=== PATIENT | female | born 1955 | race Native Hawaiian/Other Pacific Islander ===

== ENCOUNTER 2019-02-05 10:58 | Emergency (ER) | payer OTHER ==
[~2019-02-05] VITALS: Ht 152.4 cm; Wt 105.7 kg
[~2019-02-05 10:58] MED LIST: BUSP5TAB2 PO; CLARITIN10 MG PO; DIVALPROEX500 MG PO; DOCU100C10 PO; GLIP10TA55 PO; GLUCAGON1 M1 IM; HALO5INJ3 IM; HUMULIN R1 ML SC; LEVO0.2T35 PO; LORA1TAB17 PO; LORA2INJ21 IM; METO50TA27 PO; ONDA4TAB3 PO; ROBAFEN100 MG/5 M PO; TRAZ100T PO; ZIPR20CA PO
[2019-02-05 11:52] LABS: PLATELET COUNT 236 K/uL (152-353)
[2019-02-05 11:58] LABS: POTASSIUM 3.4 mmol/L (3.6-5.2)
[2019-02-05 13:03] VITALS: BP 108/67; TEMP 97.5
[2019-02-05] MEDS ORDERED: TYLENOL325 MG PO (13:58)
[2019-02-05] MEDS ORDERED: CELEXA20 MG PO (14:00)
[2019-02-05] MEDS ORDERED: DOCU100C10 PO (14:00)
[2019-02-05] MEDS ORDERED: CRANBERRY450 MG PO (14:01)
[2019-02-05] MEDS ORDERED: DIVA250T2 PO (14:02)
[2019-02-05] MEDS ORDERED: CULTURELL3 PO (14:02)
[2019-02-05] MEDS ORDERED: FERROUS SULF325 M1 PO (14:03)
[2019-02-05] MEDS ORDERED: FURO40TA93 PO (14:04)
[2019-02-05] MEDS ORDERED: NEURONTIN 100M100 MG PO (14:05)
[2019-02-05] MEDS ORDERED: GLIP10TA55 PO (14:06)
[2019-02-05] MEDS ORDERED: [UNRECOGNIZED DRUG - OTHER] XX (14:08)
[2019-02-05] MEDS ORDERED: KETOCONAZOLE2 % EX (14:09)
[2019-02-05] MEDS ORDERED: LAMICTAL25 MG PO ×2 (14:10)
[2019-02-05] MEDS ORDERED: LANTUS SOL100 UNIT/M SC (14:11)
[2019-02-05] MEDS ORDERED: LIPITOR10 MG PO (14:12)
[2019-02-05] MEDS ORDERED: LEVO0.1T6 PO (14:12)
[2019-02-05] MEDS ORDERED: [UNRECOGNIZED DRUG - CODE] EX (14:15)
[2019-02-05] MEDS ORDERED: METO-837 PO (14:16)
[2019-02-05] MEDS ORDERED: METO5TAB38 PO (14:16)
[2019-02-05] MEDS ORDERED: OLAN2.5T2 PO (14:19)
[2019-02-05] MEDS ORDERED: PROCTOZONE-HC2.5 % EX (14:20)
[2019-02-05] MEDS ORDERED: RISPERDAL3 MG PO (14:21)
[2019-02-05] MEDS ORDERED: PANTOPRAZOLE 40MG TA PO (14:21)
[2019-02-05] MEDS ORDERED: VICTOZA18 MG/3 ML SC (14:23)
[2019-02-05] MEDS ORDERED: TRAZ50TA36 PO (14:23)
[2019-02-05] MEDS ORDERED: ASCO500T18 PO (14:24)
[2019-02-05] MEDS ORDERED: VITAMIN D34000 UNIT PO (14:25)
[2019-02-05] MEDS ORDERED: ZINC SULFATE220 M2 PO (14:26)
== END 2019-02-05 13:03 | disposition other institution (70) ==
LOC: ED 10:58
PROVIDERS: Family Medicine
DX: Z00.8 Encounter for other general examination (principal); R45.86 Emotional lability; F20.0 Paranoid schizophrenia
CPT/HCPCS: 36415; 80053; 81000; 85027; 93005; 99285

== ENCOUNTER 2019-09-05 18:16 | Emergency (ER) | payer OTHER ==
[~2019-09-05] VITALS: Ht 160 cm; Wt 105.2 kg
[~2019-09-05 18:16] MED LIST changes: +ASCO500T18 PO; +CELEXA20 MG PO; +CRANBERRY450 MG PO; +CULTURELL3 PO; +DIVA250T2 PO; +ESCI10TA PO; +FERROUS SULF325 M1 PO; +FURO40TA93 PO; +KETOCONAZOLE2 % EX; +LAMICTAL25 MG PO; +LANTUS SOL100 UNIT/M SC; +LEVO0.1T6 PO; +LIPITOR10 MG PO; +METO-837 PO; +METO5TAB38 PO; +MIRALAX 17GM PAK PO; +NEURONTIN 100M100 MG PO; +OLAN2.5T2 PO; +PANTOPRAZOLE 40MG TA PO; +POTA20TA4 PO; +PROCTOZONE-HC2.5 % EX; +RISPERDAL3 MG PO; +TRAZ50TA36 PO; +TYLENOL325 MG PO; +VICTOZA18 MG/3 ML SC; +VITAMIN D34000 UNIT PO; +ZINC SULFATE220 M2 PO; +[UNRECOGNIZED DRUG - CODE] EX; +[UNRECOGNIZED DRUG - OTHER] XX
[2019-09-05 19:20] LABS: PLATELET COUNT 270 K/uL (152-353)
[2019-09-05 19:35] LABS: POTASSIUM 5.4 mmol/L (3.6-5.2)
[2019-09-05 19:55] VITALS: BP 133/67; TEMP 98.6
[2019-09-05] MEDS ORDERED: BENZ1TAB43 PO (21:25)
[2019-09-05] MEDS ORDERED: B-121000 MC5 PO (21:27)
[2019-09-05] MEDS ORDERED: B-12500 MCG PO (21:31)
[2019-09-05] MEDS ORDERED: ZIPR20CA PO (21:33)
[2019-09-05] MEDS ORDERED: JANUVIA100 MG PO (21:34)
[2019-09-05] MEDS ORDERED: TIROSINT100 MCG PO (21:36)
[2019-09-05] MEDS ORDERED: SEROQUEL300 MG PO (21:38)
[2019-09-05] MEDS ORDERED: TRESIBA FL100 UNIT/M SC (21:39)
[2019-09-05] MEDS ORDERED: DIVA500T2 PO (21:42)
[2019-09-05] MEDS ORDERED: FISH OIL1000 M1 PO (21:44)
[2019-09-05] MEDS ORDERED: ZIPR80CA PO (21:46)
[2019-09-05] MEDS ORDERED: METO-837 PO (21:50)
[2019-09-05] MEDS ORDERED: VALPROIC A250 MG/5 M PO (21:51)
[2019-09-05] MEDS ORDERED: SEROQUEL100 MG PO (21:54)
[2019-09-05] MEDS ORDERED: ZIPR20IN IM (21:59)
[2019-09-05] MEDS ORDERED: GLUCAGON1 MG IM (22:02)
[2019-09-05] MEDS ORDERED: MIRALAX3350 N1 PO (22:05)
[2019-09-05] MEDS ORDERED: SEROQUEL200 MG PO (22:07)
[2019-09-05] MEDS ORDERED: LAMICTAL25 M1 PO (22:22)
[2019-09-05] MEDS ORDERED: FSBS (22:24)
== END 2019-09-05 19:55 | disposition other institution (70) ==
LOC: ED 18:16
PROVIDERS: Emergency Medicine
PROC: 0T9B70Z Drainage of Bladder with Drainage Device, Via Natural or Artificial Opening (ICD-10-PCS; principal; 2019-09-05)
DX: F41.9 Anxiety disorder, unspecified (principal); R45.1 Restlessness and agitation; N19 Unspecified kidney failure; E87.5 Hyperkalemia; F03.91 Unspecified dementia, unspecified severity, with behavioral disturbance; I44.7 Left bundle-branch block, unspecified; Z04.6 Encounter for general psychiatric examination, requested by authority
CPT/HCPCS: 36415; 51702; 80053; 81000; 85027; 93005; 99285